=== PATIENT | male | born 1985 | race Caucasian/White ===

== ENCOUNTER 2017-03-12 21:48 | Emergency (ER) | payer MEDICAID ==
[2017-03-12] MEDS: ONDANSETRON (ODT) 4 MG TAB ODT (23:53)
[2017-03-13] MEDS: LIDOCAINE/MYLANTA 40 ML BTL PO (01:49)
== END 2017-03-13 01:56 | disposition home or self-care (01) ==
LOC: FTE 21:48
DX: K29.70 Gastritis, unspecified, without bleeding (principal); R10.9 Unspecified abdominal pain; X58.XXXA Exposure to other specified factors, initial encounter; Y92.9 Unspecified place or not applicable
CPT/HCPCS: 71046; 74018; 99284-25

== ENCOUNTER 2017-05-01 17:34 | Emergency (ER) | payer MEDICAID | END 2017-05-01 21:12 | disposition home or self-care (01) | LOC: FTE 17:34 | DX: M25.511 Pain in right shoulder (principal) | CPT/HCPCS: 73030; 73030-RT; 99283-25 ==

== ENCOUNTER 2017-10-01 21:45 | Emergency (ER) | payer MEDICAID | END 2017-10-01 23:57 | disposition home or self-care (01) | LOC: FTE 21:45 | DX: M79.671 Pain in right foot (principal) | CPT/HCPCS: 73630; 99283-25 ==

== ENCOUNTER 2018-04-24 21:09 | Emergency (ER) | payer MEDICAID ==
[2018-04-25] MEDS: AZITHROMYCIN 250 MG TAB PO (02:12)
[2018-04-25] MEDS: IBUPROFEN 600 MG TAB PO (02:12)
== END 2018-04-25 02:35 | disposition home or self-care (01) ==
LOC: FTE 21:09
DX: R05 Cough (principal)
CPT/HCPCS: 99283; Z7502